=== PATIENT | male | born 1965 | race African-American/Black ===

== ENCOUNTER 2019-04-06 12:46 | Emergency (ER) | payer MEDICAID ==
[~2019-04-06] VITALS: Ht 175.3 cm; Wt 72.7 kg
[2019-04-06 12:52] VITALS: BP 114/74; Ht 175.3 cm; Wt 72.7 kg
[2019-04-06] MEDS ORDERED: HTN MED? (12:55)
[2019-04-06 14:42] LABS: APPEARANCE CLEAR (CLEAR); BILIRUBIN NEGATIVE (NEGATIVE); COLOR YELLOW (YELLOW); GLUCOSE NEGATIVE (NEGATIVE); KETONE NEGATIVE (NEGATIVE); NITRITE NEGATIVE (NEGATIVE); PROTEIN NEGATIVE (NEGATIVE); SPECIFIC GRAVITY 1.025 (1.005-1.020); UROBILINOGEN NORMAL (NORMAL)
[2019-04-06 14:43] LABS: BACTERIA FEW /hpf (NEGATIVE); CALCIUM OXALATE CRYSTALS 0-5 /hpf (NONE SEEN); EPITHELIAL CELLS RARE /hpf (0-5); MUCUS <1+ /lpf (NONE SEEN); RED CELLS - URINE RARE /hpf (0-5); WHITE CELLS - URINE NSEEN /hpf (NEGATIVE)
[2019-04-07 08:10] LABS: RAPID PLASMA REAGIN Non Reactive (Non Reactive)
== END 2019-04-06 14:56 | disposition home or self-care (01) ==
LOC: D.ER 12:46
PROVIDERS: Family Medicine
DX: A57 Chancroid (principal); I10 Essential (primary) hypertension; Z72.0 Tobacco use

== ENCOUNTER 2019-05-27 12:22 | Emergency (ER) | payer MEDICAID ==
[~2019-05-27] VITALS: Ht 175.3 cm; Wt 72.7 kg
[~2019-05-27 12:22] MED LIST: HTN MED?
[2019-05-27 12:35] VITALS: BP 153/100; Ht 175.3 cm; Wt 72.7 kg
[2019-05-27] MEDS ORDERED: ZOVIRAX800 MG PO (14:04)
[2019-05-27] MEDS ORDERED: VOLTAREN75 MG PO (14:04)
[2019-05-27] MEDS ORDERED: ZOVIRAX 5% CREAM5 GM TOPICAL (14:04)
[2019-05-27] MEDS ORDERED: METOPROLOL TART50 MG PO (14:04)
== END 2019-05-27 14:30 | disposition home or self-care (01) ==
LOC: D.ER 12:22
DX: B00.9 Herpesviral infection, unspecified (principal); N48.22 Cellulitis of corpus cavernosum and penis; I10 Essential (primary) hypertension; M54.5 Low back pain; Z72.0 Tobacco use

== ENCOUNTER → 2020-02-02 10:28 | Outpatient (CLI) | payer OTHER ==
[2019-05-27 12:35] VITALS: BMI 23.6
[~2020-02-02 10:28] MED LIST changes: +METOPROLOL TART50 MG PO; +VOLTAREN75 MG PO; +ZOVIRAX 5% CREAM5 GM TOPICAL; +ZOVIRAX800 MG PO
== END | disposition home or self-care (01) ==
LOC: D.RAD 01-19 11:30
PROVIDERS: ATTEND Pediatrics
DX: Z02.71 Encounter for disability determination (principal)